=== PATIENT | female | born 2000 | race Caucasian/White ===

== ENCOUNTER 2021-07-15 16:53 | Emergency (ER) | payer BC ==
[~2021-07-15] VITALS: Ht 170.2 cm; Wt 54.4 kg
--- NOTE | 2021-07-15 17:10 | NUR ---
Patient to ER bed 8 to gown for evaluation. Side rails up. Report given to JOHN Szymanski.
--- NOTE | 2021-07-15 17:19 | NUR ---
Pt came into ER with complaint of right eye pain 5/10. Pt was elbowed at basketball practice under the right eye. senior animal trainer applied two steri-strips to the site. Bleeding is controlled. Visual acuity is not affected. TOBI noted. Pt is AAOX4 speaking full sentences. VSS no distress noted. Addendum: 07/15/21 at 1722 by NORMANND Pt came into ER with complaint of right eye pain 5/10. Pt was elbowed at basketball practice under the right eye. Pt presenting with approximatley 1 cm laceration under right eye. senior animal trainer applied two steri-strips to the site. Bleeding is controlled. Visual acuity is not affected. TOBI noted. Pt is AAOX4 speaking full sentences. VSS no distress noted.
[2021-07-15 17:21] VITALS: BP_SYST 125
--- NOTE | 2021-07-15 18:18 | NUR ---
ER at bedside examining patient.
--- NOTE | 2021-07-15 18:34 | NUR ---
Patient has a approximatley 1 cm laceration under right eye. Dr. Bell applied dermabond using sterile technique. Edges well approximated. Site cleansed with warm water. No bleeding noted. Pt tolerated well.
--- NOTE | 2021-07-15 18:45 | NUR ---
Patient given written and verbal discharge instructions and verbalizes understanding. ER MD discussed with patient the results and treatment provided. Patient in stable condition. ID arm band removed. No prescriptions given. Patient educated on pain management and to follow up with PMD. Pain Scale 0. Opportunity for questions provided and answered. Medication side effect fact sheet provided.
[2021-07-15 18:48] VITALS: BP_SYST 125
== END 2021-07-15 18:48 | disposition home or self-care (01) ==
LOC: SED 16:53
DX: S05.41XA Penetrating wound of orbit with or without foreign body, right eye, initial encounter (principal); W51.XXXA Accidental striking against or bumped into by another person, initial encounter; Y93.67 Activity, basketball; Y92.89 Other specified places as the place of occurrence of the external cause; Y99.8 Other external cause status
CPT/HCPCS: 99282